=== PATIENT | female | born 1955 | race Caucasian/White ===

== ENCOUNTER 2016-09-28 11:24 | Emergency (ER) | payer OTHER ==
--- NOTE | 2016-09-28 12:32 | C.PDOC ---
History Of Present Illness 60 y/o female with Hx of LOYA in 2014 presents to ED with complaints of recurrent Left sided LOYA since yesterday. Patient describes localized pain intermittent sharp lasting several seconds. Patient states " feels tender over area where I wear my eyeglasses" but denies migraine. S/P negative "cancer testing". No other complaints at this time. RECUR L SIDED LOYA SINCE YEST. LOCALIZED INTERMIT SHARP LASTING SEV SECONDS. "FEELS TENDER OVER AREA WHERE I WEAR MY EYEGLASSES". DENIES HO MIGRAINE. PS SIM LOYA 2014, SP NEG "CANCER TESTING". NO OTHER ASSOC SX. EXAM MILD DIST NONTOXIC HEENT GEN SCALP TEND L PARIETAL. NO SWELL, DEFORM SKIN NEG NEURO INTACT Time Seen by Provider: 09/28/16 12:08 Chief Complaint (Nursing): Headache History Per: Patient History/Exam Limitations: no limitations Onset/Duration Of Symptoms: Days Current Symptoms Are (Timing): Still Present Quality: Sharp Past Medical History Reviewed: Historical Data, Nursing Documentation, Vital Signs Vital Signs: Last Vital Signs Temp 97.4 F L 09/28/16 14:17 Pulse 66 09/28/16 14:17 Resp 18 09/28/16 14:17 BP 145/79 09/28/16 14:26 Pulse Ox 99 09/28/16 14:17 - Medical History PMH: HTN Family History: States: Unknown Family Hx - Social History Hx Alcohol Use: No Hx Substance Use: No - Immunization History Hx Tetanus Toxoid Vaccination: Yes Hx Influenza Vaccination: Yes Hx Pneumococcal Vaccination: No Review Of Systems Except As Marked, All Systems Reviewed And Found Negative. Constitutional: Negative for: Fever, Chills Cardiovascular: Negative for: Chest Pain Respiratory: Negative for: Cough, Shortness of Breath Gastrointestinal: Negative for: Nausea, Vomiting, Diarrhea Skin: Negative for: Rash Neurological: Positive for: Headache. Negative for: Weakness, Dizziness Physical Exam - Physical Exam Appears: Non-toxic, Other (Mild distress) Skin: Normal Color, Warm Head: Tenderness (General Scalp tenderness, Left Parietal), No Swelling Eye(s): bilateral: Normal Inspection Oral Mucosa: Moist Neck: Normal ROM Cardiovascular: Rhythm Regular, No Murmur Respiratory: No Rales, No Rhonchi, No Wheezing Gastrointestinal/Abdominal: Soft, No Tenderness, No Guarding, No Rebound Extremity: Normal ROM, Capillary Refill (< 2 seconds) Neurological/Psych: Oriented x3, Normal Speech, Normal Cognition ED Course And Treatment O2 Sat by Pulse Oximetry: 100 (RA) Pulse Ox Interpretation: Normal - CT Scan/US CT Head Other Rad Studies (CT/US): Interpreted By Me, Read By Radiologist CT/US Interpretation: Accession No. : [id number]. Patient Name / ID : EMILY VEGA / [id number]. Exam Date : 09/28/2016 13:23:52 ( Approved ). Study Comment : Sex / Age : F / 60Y. Creator : Kailey Miller MD. Dictator : Kailey Miller MD. Security Incident Response Engineer : Industrial Hygienist : Kailey Miller MD. Approver2 : Report Date : 09/28/2016 13:38:59. My Comment : . PROCEDURE: CT HEAD WITHOUT CONTRAST. HISTORY: L PARIETAL LOYA, PLEASE COMPARE W 2014. COMPARISON: Noncontrast head CT performed 04/12/15. TECHNIQUE : Axial computed tomography images were obtained through the head/brain without intravenous contrast. Radiation dose: Total exam DLP = 823.46 mGy-cm. This CT exam was performed using one or more of the following dose reduction techniques: Automated exposure control, adjustment of the mA and/or kV according to patient size, and/or use of iterative reconstruction technique. FINDINGS: HEMORRHAGE: No intracranial hemorrhage. BRAIN: No mass effect or edema. Intracranial atherosclerotic calcifications. The shelley-white matter differentiation appears intact.Please note that MRI with diffusion imaging is more sensitive in the detection of acute ischemic event. VENTRICLES: No hydrocephalus. CALVARIUM: Unremarkable. PARANASAL SINUSES: Unremarkable as visualized. No significant inflammatory changes. MASTOID AIR CELLS: Unremarkable as visualized. No inflammatory changes. OTHER FINDINGS: 11 mm lucent skull lesion re-identified, right occipital bone without appreciable interval change. IMPRESSION: No acute intracranial pathology identified. Progress - Re-Evaluation Re-evaluation Note: 09/28/16 13:47 CT REPORT REVIEWED, [facility] FROM 2015 FEELS BETTER NEURO INTACT APPEARS COMFORTABLE - Data Reviewed Data Reviewed: Diagnostic imaging, Old records Disposition Counseled Patient/Family Regarding: Studies Performed, Diagnosis, Need For Followup - Disposition Referrals: Natalie Singer MD [Primary Care Provider] - Disposition: HOME/ ROUTINE Disposition Time: 13:50 Condition: IMPROVED Instructions: Acute Headache (ED) - Clinical Impression Clinical Impression: Headache - PA / IRRIGATION SERVICE TECHNICIAN / Resident Statement MD/DO has reviewed & agrees with the documentation as recorded. MD/DO has examined the patient and agrees with the treatment plan. - Scribe Statement The provider has reviewed the documentation as recorded by the Juancho Ayala All medical record entries made by the Juancho were at my direction and personally dictated by me. I have reviewed the chart and agree that the record accurately reflects my personal performance of the history, physical exam, medical decision making, and the department course for this patient. I have also personally directed, reviewed, and agree with the discharge instructions and disposition.
--- NOTE | 2016-09-28 13:40 | CT ---
PROCEDURE: CT HEAD WITHOUT CONTRAST. HISTORY: L PARIETAL LOYA, PLEASE COMPARE W 2014 COMPARISON: Noncontrast head CT performed 04/12/15 TECHNIQUE: Axial computed tomography images were obtained through the head/brain without intravenous contrast. Radiation dose: Total exam DLP = 823.46 mGy-cm. This CT exam was performed using one or more of the following dose reduction techniques: Automated exposure control, adjustment of the mA and/or kV according to patient size, and/or use of iterative reconstruction technique. FINDINGS: HEMORRHAGE: No intracranial hemorrhage. BRAIN: No mass effect or edema. Intracranial atherosclerotic calcifications. The shelley-white matter differentiation appears intact.Please note that MRI with diffusion imaging is more sensitive in the detection of acute ischemic event. VENTRICLES: No hydrocephalus. CALVARIUM: Unremarkable. PARANASAL SINUSES: Unremarkable as visualized. No significant inflammatory changes. MASTOID AIR CELLS: Unremarkable as visualized. No inflammatory changes. OTHER FINDINGS: 11 mm lucent skull lesion re-identified, right occipital bone without appreciable interval change. IMPRESSION: No acute intracranial pathology identified.
[2016-09-28 14:18] VITALS: PULSE 66; RESP 18; TEMP 97.4
[2016-09-28 14:26] VITALS: BP 145/79
[2016-09-28 14:29] VITALS: O2SAT 100
== END 2016-09-28 14:27 | disposition home or self-care (01) ==
LOC: C.ER 11:24 → SUPCPDRO 11:24 → C.ER 14:27
DX: R51 Headache (principal)
CPT/HCPCS: 70450; 96372; 99285; J1885; J2765; J3030